=== PATIENT | male | born 1945 | race Caucasian/White ===

== ENCOUNTER 2022-03-28 23:28 | Emergency (ER) | payer OTHER, BC ==
[2022-03-28 23:40] VITALS: RESP 18; TEMP 97.8
[2022-03-28] MEDS ORDERED: DIPHTH,PERTUSS(ACELL),TET 0.5 ML DISP.SYRIN IM ONE (23:55)
[2022-03-29] MEDS ORDERED: DIPHTH,PERTUSS(ACELL),TET 0.5 ML DISP.SYRIN IM ONE (00:13)
[2022-03-29] MEDS ORDERED: LISINOPRIL 5 MG TABLET PO ONE (01:13)
[2022-03-29] MEDS ORDERED: LISINOPRIL 5 MG TABLET ONE (01:17)
[2022-03-29 01:26] VITALS: BP 186/110; PULSE 68
== END 2022-03-29 01:52 | disposition home or self-care (01) ==
LOC: FER 23:28
PROC: 3E0234Z Introduction of Serum, Toxoid and Vaccine into Muscle, Percutaneous Approach (ICD-10-PCS; principal; 2022-03-28)
DX: S00.81XA Abrasion of other part of head, initial encounter (principal); S60.222A Contusion of left hand, initial encounter; S60.417A Abrasion of left little finger, initial encounter; S80.02XA Contusion of left knee, initial encounter; I10 Essential (primary) hypertension; W19.XXXA Unspecified fall, initial encounter
CPT/HCPCS: 70450-TC; 72125-TC; 73130-TC-LT-FY; 73560-TC-LT-FY; 90471; 90715; 99284-25